=== PATIENT | female | born 1970 | race American Indian/Alaskan Native ===

== ENCOUNTER 2023-04-15 14:28 | Emergency (ER) | payer MEDICAID ==
[2023-04-15] MEDS ORDERED: Diphtheria,Pertussis(Acell),Tetanus Vaccine 0.5 ML Syringe IM ONE (14:57)
[2023-04-15] MEDS ORDERED: Bacitracin Oint 15 GM Tube TOP ONE (15:24)
== END 2023-04-15 15:42 | disposition home or self-care (01) ==
LOC: JD.ED 14:28
DX: S90.811A Abrasion, right foot, initial encounter (principal); Z88.5 Allergy status to narcotic agent; Z23 Encounter for immunization; W19.XXXA Unspecified fall, initial encounter
CPT/HCPCS: 73630-26-RT; 73630-RT; 90471; 90715; 99283-25

== ENCOUNTER 2023-06-28 19:13 | Emergency (ER) | payer MEDICAID ==
[2023-06-28] MEDS ORDERED: Gentamicin 0.3% Ophth Soln 5 ML Bottle EYELF SCH (21:00)
== END 2023-06-28 21:23 | disposition home or self-care (01) ==
LOC: JD.ED 19:13
DX: H10.9 Unspecified conjunctivitis (principal); E11.9 Type 2 diabetes mellitus without complications; E66.9 Obesity, unspecified; Z68.35 Body mass index [BMI] 35.0-35.9, adult; Z88.5 Allergy status to narcotic agent; Z91.040 Latex allergy status; Z79.899 Other long term (current) drug therapy; Z79.4 Long term (current) use of insulin
CPT/HCPCS: 99282; A9270; 99283

== ENCOUNTER 2023-08-12 12:44 | Emergency (ER) | payer MEDICAID | END 2023-08-12 14:20 | disposition home or self-care (01) | LOC: JD.ED 12:44 | DX: S50.02XA Contusion of left elbow, initial encounter (principal); E11.9 Type 2 diabetes mellitus without complications; E66.9 Obesity, unspecified; Z98.890 Other specified postprocedural states; Z88.5 Allergy status to narcotic agent; Z91.040 Latex allergy status; Z79.899 Other long term (current) drug therapy; Z79.4 Long term (current) use of insulin; W01.198A Fall on same level from slipping, tripping and stumbling with subsequent striking against other object, initial encounter; Y93.E1 Activity, personal bathing and showering | CPT/HCPCS: 73080-26-LT; 73080-LT; 73090-26-LT; 73090-LT; 99283 ==

== ENCOUNTER 2025-05-22 19:20 | Emergency (ER) | payer SELFPAY ==
[2025-05-22] MEDS ORDERED: Sodium Chloride 0.9% 10 ML Syringe FLUSH PRN (20:04)
[2025-05-22 20:07] LABS: BASOPHILS ABSOLUTE AUTO 0.1 K/mm3 (0.0-0.2); BASOPHILS PERCENT AUTO 0.7 % (0.0-1.0); EOSINOPHILS ABSOLUTE AUTO 0.2 K/mm3 (0.0-0.4); EOSINOPHILS PERCENT AUTO 2.9 % (0.0-6.0); IMMATURE GRAN ABSOLUTE AUTO 0.02 K/mm3 (0.00-0.05); IMMATURE GRAN PERCENT AUTO 0.3 % (0.0-0.4); LYMPHOCYTES ABSOLUTE AUTO 2.5 K/mm3 (1.0-4.8); LYMPHOCYTES PERCENT AUTO 36.8 % (24.0-44.0); MEAN PLATELET VOLUME 10.9 fl (9.4-12.3); MONOCYTES ABSOLUTE AUTO 0.5 K/mm3 (0.0-0.8); MONOCYTES PERCENT AUTO 7.4 % (0.0-8.0); NEUTROPHILS ABSOLUTE AUTO 3.5 K/mm3 (1.8-7.7); NEUTROPHILS PERCENT AUTO 51.9 % (41.0-71.0); NRBC ABSOLUTE 0.00 (0.00-0.02); NRBC PERCENT 0.0 % (0.0-0.2); PLATELET COUNT,PLT 212 K/mm3 (150-400); RED BLOOD CELL COUNT 5.59 M/mm3 (4.10-5.30); WHITE BLOOD CELL COUNT,WBC 6.80 K/mm3 (3.9-11.3)
[2025-05-22 20:22] LABS: A/G RATIO 0.7 (1-2); ALANINE AMINOTRANSFERASE,ALT 31.0 U/L (14-59); ASPARTATE AMNIOTRANSFERASE,AST 19.0 U/L (15-37); BILIRUBIN TOTAL 0.5 mg/dL (0.2-1.0); BLOOD UREA NITROGEN,BUN 10.0 mg/dL (7-18); CARBON DIOXIDE,CO2 24.0 mEq/L (21-32); CHLORIDE,CL 105.0 mEq/L (98-107); CREATININE 0.9 mg/dL (0.55-1.02); EST CRCL DRUG DOSING (CG) 67.87 mL/min; ESTIMATED GFR 75.0 mL/min (>60); POTASSIUM,K 4.3 mEq/L (3.5-5.1); PROTEIN TOTAL,TP 8.1 g/dl (6.4-8.2); SODIUM,NA 140.0 mEq/L (136-145)
[2025-05-22] MEDS: Ondansetron 4 MG/2 ML SDV IVPUSH ONE (20:24)
[2025-05-22 20:32] LABS: GLUCOSE RANDOM 468.0 mg/dL (70-99)
[2025-05-22] MEDS: Sodium Chloride 0.9% 10 ML Syringe FLUSH PRN (20:46)
[2025-05-22] MEDS: Iopamidol 612 MG/ML 30 ML SDV IV ONE (20:46)
[2025-05-22] MEDS: Iopamidol 612 MG/ML 100 ML Bottle IVPUSH ONE (20:46)
[2025-05-22 22:15] LABS: APPEARANCE,URINE CLEAR (Clear); GLUCOSE,URINE 2+ (Negative); OCCULT BLOOD,URINE TRACE-INTACT (Negative)
[2025-05-22 22:24] LABS: SQUAMOUS EPITHELIAL CELLS,UR 0-5 /hpf (0-5)
== END 2025-05-22 22:53 | disposition home or self-care (01) ==
LOC: JD.ED 19:20
DX: K52.9 Noninfective gastroenteritis and colitis, unspecified (principal); E11.65 Type 2 diabetes mellitus with hyperglycemia; Z88.5 Allergy status to narcotic agent; Z91.040 Latex allergy status; Z79.4 Long term (current) use of insulin; Z79.899 Other long term (current) drug therapy; Z90.49 Acquired absence of other specified parts of digestive tract
CPT/HCPCS: 36415; 74177; 80053; 81001; 83690; 85025; 96361; 96374; 96375; 99284; J1308; J2405; J7030; Q9967; J1171

== ENCOUNTER 2025-05-27 16:51 | Emergency (ER) | payer MEDICAID ==
[2025-05-27] MEDS: Ondansetron 4 MG/2 ML SDV IVPUSH ONE ×2 (17:50→23:21)
[2025-05-27 17:51] LABS: BASOPHILS ABSOLUTE AUTO 0.1 K/mm3 (0.0-0.2); BASOPHILS PERCENT AUTO 0.8 % (0.0-1.0); EOSINOPHILS ABSOLUTE AUTO 0.2 K/mm3 (0.0-0.4); EOSINOPHILS PERCENT AUTO 2.0 % (0.0-6.0); IMMATURE GRAN ABSOLUTE AUTO 0.02 K/mm3 (0.00-0.05); IMMATURE GRAN PERCENT AUTO 0.3 % (0.0-0.4); LYMPHOCYTES ABSOLUTE AUTO 2.4 K/mm3 (1.0-4.8); LYMPHOCYTES PERCENT AUTO 31.9 % (24.0-44.0); MEAN PLATELET VOLUME 11.4 fl (9.4-12.3); MONOCYTES ABSOLUTE AUTO 0.5 K/mm3 (0.0-0.8); MONOCYTES PERCENT AUTO 6.8 % (0.0-8.0); NEUTROPHILS ABSOLUTE AUTO 4.3 K/mm3 (1.8-7.7); NEUTROPHILS PERCENT AUTO 58.2 % (41.0-71.0); NRBC ABSOLUTE 0.00 (0.00-0.02); NRBC PERCENT 0.0 % (0.0-0.2); PLATELET COUNT,PLT 228 K/mm3 (150-400); RED BLOOD CELL COUNT 5.80 M/mm3 (4.10-5.30); WHITE BLOOD CELL COUNT,WBC 7.40 K/mm3 (3.9-11.3)
[2025-05-27 18:07] LABS: A/G RATIO 0.7 (1-2); ALANINE AMINOTRANSFERASE,ALT 31.0 U/L (14-59); ASPARTATE AMNIOTRANSFERASE,AST 23.0 U/L (15-37); BILIRUBIN TOTAL 0.4 mg/dL (0.2-1.0); BLOOD UREA NITROGEN,BUN 13.0 mg/dL (7-18); CARBON DIOXIDE,CO2 23.0 mEq/L (21-32); CHLORIDE,CL 105.0 mEq/L (98-107); CREATININE 1.1 mg/dL (0.55-1.02); EST CRCL DRUG DOSING (CG) 55.53 mL/min; ESTIMATED GFR 59.0 mL/min (>60); POTASSIUM,K 4.1 mEq/L (3.5-5.1); PROTEIN TOTAL,TP 8.2 g/dl (6.4-8.2); SODIUM,NA 140.0 mEq/L (136-145)
[2025-05-27 18:11] LABS: GLUCOSE RANDOM 592.0 mg/dL (70-99)
[2025-05-27 19:10] LABS: APPEARANCE,URINE CLEAR (Clear); GLUCOSE,URINE 2+ (Negative); OCCULT BLOOD,URINE TRACE-LYSED (Negative)
[2025-05-27] MEDS: Insulin Regular, Human 100 Units/ML 10 ML Vial SUBCUT ONE (19:12)
[2025-05-27] MEDS ORDERED: Iopamidol 755 Mg/ML 100 ML Bottle IVPUSH ONE (19:14)
[2025-05-27] MEDS: Sodium Chloride 0.9% 10 ML Syringe FLUSH PRN (19:15)
[2025-05-27] MEDS: Iopamidol 612 MG/ML 100 ML Bottle IVPUSH ONE (19:15)
[2025-05-27 19:20] LABS: BASE EXCESS ARTERIAL -0.2 (-2-2.0); BICARBONATE,ARTERIAL 24.0 meq/L (22.0-26.0); O2 SATURATION ARTERIAL 95.4 % (96.0-97.0); PCO2 ARTERIAL 37.0 mmHg (35.0-45.0); PO2 ARTERIAL 69.0 mmHg (80.0-100.0)
[2025-05-27] MEDS: Ketorolac 15 MG/ML SDV IVPUSH ONE (19:24)
[2025-05-27 19:35] LABS: EPITHELIAL CELLS,URINE 0-5 /hpf (0-5)
[2025-05-27] MEDS: Insulin Regular, Human 100 Units/ML 10 ML Vial IV ONE (21:29)
== END 2025-05-27 23:19 | disposition home or self-care (01) ==
LOC: JD.ED 16:51
DX: R10.9 Unspecified abdominal pain (principal); E11.65 Type 2 diabetes mellitus with hyperglycemia; R11.2 Nausea with vomiting, unspecified; R82.90 Unspecified abnormal findings in urine; E66.9 Obesity, unspecified; Z88.8 Allergy status to other drugs, medicaments and biological substances; Z88.5 Allergy status to narcotic agent; Z79.4 Long term (current) use of insulin; Z91.040 Latex allergy status; Z90.49 Acquired absence of other specified parts of digestive tract; Z90.710 Acquired absence of both cervix and uterus; Z68.39 Body mass index [BMI] 39.0-39.9, adult
CPT/HCPCS: 36415; 36600; 74177; 80053; 81001; 82010; 82803; 82947; 83690; 83930; 84484; 85025; 93005; 96361; 96374; 96375; 96376; 99284; A9270; J1171; J1815; J1885; J2405; J7030; Q9967; 93010

== ENCOUNTER 2025-05-29 11:15 | Inpatient (IN) | payer SELFPAY ==
[2025-05-29] MEDS: Ondansetron 4 MG/2 ML SDV IVPUSH ONE (11:31)
[2025-05-29 11:46] LABS: BASOPHILS ABSOLUTE AUTO 0.1 K/mm3 (0.0-0.2); BASOPHILS PERCENT AUTO 0.8 % (0.0-1.0); EOSINOPHILS ABSOLUTE AUTO 0.1 K/mm3 (0.0-0.4); EOSINOPHILS PERCENT AUTO 2.0 % (0.0-6.0); IMMATURE GRAN ABSOLUTE AUTO 0.01 K/mm3 (0.00-0.05); IMMATURE GRAN PERCENT AUTO 0.2 % (0.0-0.4); LYMPHOCYTES ABSOLUTE AUTO 1.6 K/mm3 (1.0-4.8); LYMPHOCYTES PERCENT AUTO 25.2 % (24.0-44.0); MEAN PLATELET VOLUME 10.9 fl (9.4-12.3); MONOCYTES ABSOLUTE AUTO 0.4 K/mm3 (0.0-0.8); MONOCYTES PERCENT AUTO 6.2 % (0.0-8.0); NEUTROPHILS ABSOLUTE AUTO 4.2 K/mm3 (1.8-7.7); NEUTROPHILS PERCENT AUTO 65.6 % (41.0-71.0); NRBC ABSOLUTE 0.00 (0.00-0.02); NRBC PERCENT 0.0 % (0.0-0.2); PLATELET COUNT,PLT 202 K/mm3 (150-400); RED BLOOD CELL COUNT 5.34 M/mm3 (4.10-5.30); WHITE BLOOD CELL COUNT,WBC 6.42 K/mm3 (3.9-11.3)
[2025-05-29 12:08] LABS: A/G RATIO 0.8 (1-2); ALANINE AMINOTRANSFERASE,ALT 28.0 U/L (14-59); ASPARTATE AMNIOTRANSFERASE,AST 19.0 U/L (15-37); BILIRUBIN TOTAL 0.7 mg/dL (0.2-1.0); BLOOD UREA NITROGEN,BUN 10.0 mg/dL (7-18); CARBON DIOXIDE,CO2 23.0 mEq/L (21-32); CHLORIDE,CL 104.0 mEq/L (98-107); CREATININE 0.9 mg/dL (0.55-1.02); EST CRCL DRUG DOSING (CG) 67.87 mL/min; ESTIMATED GFR 75.0 mL/min (>60); POTASSIUM,K 4.1 mEq/L (3.5-5.1); PROTEIN TOTAL,TP 7.7 g/dl (6.4-8.2); SODIUM,NA 141.0 mEq/L (136-145)
[2025-05-29 12:09] LABS: GLUCOSE RANDOM 418.0 mg/dL (70-99)
[2025-05-29 12:10] LABS: ETHANOL BLOOD MEDICAL 0.0 gm% (0.00)
[2025-05-29 12:11] LABS: LACTIC ACID 1.7 mmol/L (0.4-2.0)
[2025-05-29] MEDS: Lactated Ringers 1,000 ML IV STA (13:01)
[2025-05-29] MEDS: Insulin Lispro 100 Unit/ML 3 ML KwikPen SUBCUT ONE (13:07)
[2025-05-29 14:24] LABS: APPEARANCE,URINE CLEAR (Clear); GLUCOSE,URINE 2+ (Negative); OCCULT BLOOD,URINE NEGATIVE (Negative)
[2025-05-29 14:33] LABS: BUPRENORPHINE SCREEN,URINE NEGATIVE (CUTOFF=10); METHADONE SCREEN, URINE NEGATIVE (CUTOFF=200); METHAMPHETAMINES SCREEN, URINE NEGATIVE (CUTOFF=500); OXYCODONE SCREEN,URINE NEGATIVE (CUT0FF=100); THC SCREEN,URINE 20 NG/ML NEGATIVE (CUTOFF=50)
[2025-05-29 14:37] LABS: EPITHELIAL CELLS,URINE 0-5 /hpf (0-5)
[2025-05-29 14:41] LABS: AMPHETAMINES SCREEN, URINE NEGATIVE (CUTOFF=500)
[2025-05-29 15:31] LABS: PCO2 VENOUS 37.0 mmHg (41-51); PH,VENOUS 7.35 (7.30-7.40); PO2 VENOUS 31.0 mmHG (40-80)
[2025-05-29 15:32] LABS: BASE EXCESS VENOUS -4.6 (-4.0-2.0); BICARBONATE,VENOUS 20.4 meq/L (22-26); O2 SATURATION VENOUS 51.0
[2025-05-29] MEDS ORDERED: 50% Dextrose in Water 50 ML Syringe IVPUSH PRN (15:51)
[2025-05-29] MEDS: Lactated Ringers 1,000 ML IV SCH (16:04)
[2025-05-29] MEDS: Insulin Lispro 100 Unit/ML 3 ML KwikPen SUBCUT SCH (17:06)
[2025-05-29] MEDS: Ketorolac 30 MG/ML SDV IVPUSH PRN (21:32)
[2025-05-30 05:31] LABS: BASOPHILS ABSOLUTE AUTO 0.1 K/mm3 (0.0-0.2); BASOPHILS PERCENT AUTO 1.3 % (0.0-1.0); EOSINOPHILS ABSOLUTE AUTO 0.2 K/mm3 (0.0-0.4); EOSINOPHILS PERCENT AUTO 3.3 % (0.0-6.0); IMMATURE GRAN ABSOLUTE AUTO 0.01 K/mm3 (0.00-0.05); IMMATURE GRAN PERCENT AUTO 0.2 % (0.0-0.4); LYMPHOCYTES ABSOLUTE AUTO 2.0 K/mm3 (1.0-4.8); LYMPHOCYTES PERCENT AUTO 42.8 % (24.0-44.0); MEAN PLATELET VOLUME 11.0 fl (9.4-12.3); MONOCYTES ABSOLUTE AUTO 0.4 K/mm3 (0.0-0.8); MONOCYTES PERCENT AUTO 8.8 % (0.0-8.0); NEUTROPHILS ABSOLUTE AUTO 2.0 K/mm3 (1.8-7.7); NEUTROPHILS PERCENT AUTO 43.6 % (41.0-71.0); NRBC ABSOLUTE 0.00 (0.00-0.02); NRBC PERCENT 0.0 % (0.0-0.2); PLATELET COUNT,PLT 156 K/mm3 (150-400); RED BLOOD CELL COUNT 4.71 M/mm3 (4.10-5.30); WHITE BLOOD CELL COUNT,WBC 4.56 K/mm3 (3.9-11.3)
[2025-05-30] MEDS: Ondansetron 4 MG/2 ML SDV IVPUSH PRN (05:59)
[2025-05-30 06:01] LABS: A/G RATIO 0.7 (1-2); ALANINE AMINOTRANSFERASE,ALT 26.0 U/L (14-59); ASPARTATE AMNIOTRANSFERASE,AST 19.0 U/L (15-37); BILIRUBIN TOTAL 0.5 mg/dL (0.2-1.0); BLOOD UREA NITROGEN,BUN 9.0 mg/dL (7-18); CARBON DIOXIDE,CO2 24.0 mEq/L (21-32); CHLORIDE,CL 105.0 mEq/L (98-107); CREATININE 0.8 mg/dL (0.55-1.02); EST CRCL DRUG DOSING (CG) 76.36 mL/min; ESTIMATED GFR 86.0 mL/min (>60); POTASSIUM,K 3.7 mEq/L (3.5-5.1); PROTEIN TOTAL,TP 6.3 g/dl (6.4-8.2); SODIUM,NA 139.0 mEq/L (136-145)
[2025-05-30 06:14] LABS: GLUCOSE RANDOM 429.0 mg/dL (70-99)
[2025-05-30] MEDS: Insulin Lispro 100 Unit/ML 3 ML KwikPen SUBCUT ONE (06:42)
[2025-05-30] MEDS: Insulin Glargine,Human Rec. Analog 100 Units/ML 3 ML Pen SUBCUT SCH ×2 (08:28→20:49)
[2025-05-30] MEDS ORDERED: Insulin Glargine,Human Rec. Analog 100 Units/ML 3 ML Pen SUBCUT SCH (09:00)
[2025-05-30 10:03] LABS: CHOLESTEROL HDL 27.0 mg/dL (40-59); CHOLESTEROL LDL DIRECT 80.0 mg/dL (<100); CHOLESTEROL TOTAL 127.0 mg/dL (<200); TSH 4.945 uIU/mL (0.358-3.74)
[2025-05-30 10:42] LABS: T4 FREE 1.15 ng/dL (0.76-1.46)
[2025-05-31] MEDS: Insulin Glargine,Human Rec. Analog 100 Units/ML 3 ML Pen SUBCUT SCH (08:23)
[2025-05-31] MEDS: Magnesium Citrate Solution 296 ML Bottle PO ONE (09:20)
== END 2025-05-31 13:39 | disposition home or self-care (01) | DRG 392 ==
LOC: JD.ED 11:15 → JD.MS 13:13
PROVIDERS: ADMIT Family Medicine; ATTEND Family Medicine
DX: K29.00 Acute gastritis without bleeding (principal); E87.29 Other acidosis; Z68.41 Body mass index [BMI] 40.0-44.9, adult; K31.84 Gastroparesis; E11.65 Type 2 diabetes mellitus with hyperglycemia; H54.7 Unspecified visual loss; N20.0 Calculus of kidney; G43.909 Migraine, unspecified, not intractable, without status migrainosus; E66.9 Obesity, unspecified; E83.42 Hypomagnesemia; E86.0 Dehydration; D64.9 Anemia, unspecified; Z90.49 Acquired absence of other specified parts of digestive tract; Z98.890 Other specified postprocedural states; Z88.8 Allergy status to other drugs, medicaments and biological substances; Z98.891 History of uterine scar from previous surgery; Z91.040 Latex allergy status; Z79.4 Long term (current) use of insulin; Z90.710 Acquired absence of both cervix and uterus; Z87.891 Personal history of nicotine dependence
CPT/HCPCS: 36415; 74018; 74018-26; 76705; 76705-26; 80053; 80061; 80306; 80307; 81001; 82010; 82803; 82947; 83036; 83605; 83690; 83735; 83930; 84100; 84439; 84443; 84703; 85025; 86140; 87338; 96361; 96374; 96375; 99285; 99285-25; A9270-GY; J1650; J1815-GY; J1885; J2405; J2470; J2765; J3475; J7030; J7120

== ENCOUNTER 2025-06-08 13:27 | Inpatient (IN) | payer SELFPAY ==
[2025-06-08 14:05] LABS: BASOPHILS ABSOLUTE AUTO 0.1 K/mm3 (0.0-0.2); BASOPHILS PERCENT AUTO 0.8 % (0.0-1.0); EOSINOPHILS ABSOLUTE AUTO 0.0 K/mm3 (0.0-0.4); EOSINOPHILS PERCENT AUTO 0.2 % (0.0-6.0); IMMATURE GRAN ABSOLUTE AUTO 0.04 K/mm3 (0.00-0.05); IMMATURE GRAN PERCENT AUTO 0.4 % (0.0-0.4); LYMPHOCYTES ABSOLUTE AUTO 1.8 K/mm3 (1.0-4.8); LYMPHOCYTES PERCENT AUTO 19.6 % (24.0-44.0); MEAN PLATELET VOLUME 11.3 fl (9.4-12.3); MONOCYTES ABSOLUTE AUTO 0.4 K/mm3 (0.0-0.8); MONOCYTES PERCENT AUTO 4.6 % (0.0-8.0); NEUTROPHILS ABSOLUTE AUTO 6.9 K/mm3 (1.8-7.7); NEUTROPHILS PERCENT AUTO 74.4 % (41.0-71.0); NRBC ABSOLUTE 0.00 (0.00-0.02); NRBC PERCENT 0.0 % (0.0-0.2); PLATELET COUNT,PLT 246 K/mm3 (150-400); RED BLOOD CELL COUNT 6.06 M/mm3 (4.10-5.30); WHITE BLOOD CELL COUNT,WBC 9.23 K/mm3 (3.9-11.3)
[2025-06-08] MEDS: Ondansetron 4 MG/2 ML SDV IVPUSH ONE ×2 (14:07→16:39)
[2025-06-08 14:34] LABS: A/G RATIO 0.8 (1-2); ALANINE AMINOTRANSFERASE,ALT 33.0 U/L (14-59); ASPARTATE AMNIOTRANSFERASE,AST 16.0 U/L (15-37); BILIRUBIN TOTAL 0.8 mg/dL (0.2-1.0); BLOOD UREA NITROGEN,BUN 20.0 mg/dL (7-18); CARBON DIOXIDE,CO2 18.0 mEq/L (21-32); CHLORIDE,CL 99.0 mEq/L (98-107); CREATININE 1.3 mg/dL (0.55-1.02); EST CRCL DRUG DOSING (CG) 46.99 mL/min; ESTIMATED GFR 48.0 mL/min (>60); POTASSIUM,K 4.7 mEq/L (3.5-5.1); PROTEIN TOTAL,TP 9.0 g/dl (6.4-8.2); SODIUM,NA 136.0 mEq/L (136-145)
[2025-06-08 15:09] LABS: ETHANOL BLOOD MEDICAL 0.0 gm% (0.00); GLUCOSE RANDOM 682.0 mg/dL (70-99)
[2025-06-08 15:10] LABS: APPEARANCE,URINE CLEAR (Clear); GLUCOSE,URINE 2+ (Negative); OCCULT BLOOD,URINE TRACE-INTACT (Negative)
[2025-06-08 15:23] LABS: EPITHELIAL CELLS,URINE 0-5 /hpf (0-5)
[2025-06-08 16:08] LABS: PH,VENOUS 7.28 (7.30-7.40)
[2025-06-08 16:09] LABS: BASE EXCESS VENOUS -6.4 (-4.0-2.0); BICARBONATE,VENOUS 20.2 meq/L (22-26); O2 SATURATION VENOUS 38.2; PCO2 VENOUS 43.0 mmHg (41-51); PO2 VENOUS 35.0 mmHG (40-80)
[2025-06-08] MEDS: Sodium Chloride 0.9% 10 ML Syringe FLUSH PRN (16:39)
[2025-06-08] MEDS ORDERED: 50% Dextrose in Water 50 ML Syringe IVPUSH PRN (17:18)
[2025-06-08 18:36] LABS: PHOSPHORUS 3.8 mg/dL (2.6-4.7)
[2025-06-08 19:48] LABS: BLOOD UREA NITROGEN,BUN 22.0 mg/dL (7-18); CARBON DIOXIDE,CO2 26.0 mEq/L (21-32); CHLORIDE,CL 106.0 mEq/L (98-107); CREATININE 1.3 mg/dL (0.55-1.02); EST CRCL DRUG DOSING (CG) 46.99 mL/min; ESTIMATED GFR 48.0 mL/min (>60); GLUCOSE RANDOM 317.0 mg/dL (70-99); POTASSIUM,K 3.9 mEq/L (3.5-5.1); SODIUM,NA 144.0 mEq/L (136-145)
[2025-06-08] MEDS: LORazepam 2 MG/ML SDV IVPUSH PRN (21:00)
[2025-06-08] MEDS: Midazolam 1 MG/ML 2 ML SDV IVPUSH ONE (22:55)
[2025-06-08] MEDS: fentaNYL 100 MCG/2 ML SDV IVPUSH ONE (22:55)
[2025-06-08 23:13] LABS: BLOOD UREA NITROGEN,BUN 22.0 mg/dL (7-18); CARBON DIOXIDE,CO2 22.0 mEq/L (21-32); CHLORIDE,CL 110.0 mEq/L (98-107); CREATININE 1.2 mg/dL (0.55-1.02); EST CRCL DRUG DOSING (CG) 50.9 mL/min; ESTIMATED GFR 53.0 mL/min (>60); GLUCOSE RANDOM 288.0 mg/dL (70-99); POTASSIUM,K 4.1 mEq/L (3.5-5.1); SODIUM,NA 143.0 mEq/L (136-145)
[2025-06-08 23:16] LABS: PHOSPHORUS 2.9 mg/dL (2.6-4.7)
[2025-06-09 02:33] LABS: PHOSPHORUS 2.7 mg/dL (2.6-4.7)
[2025-06-09 05:00] LABS: BLOOD UREA NITROGEN,BUN 20.0 mg/dL (7-18); CARBON DIOXIDE,CO2 27.0 mEq/L (21-32); CHLORIDE,CL 113.0 mEq/L (98-107); CREATININE 1.0 mg/dL (0.55-1.02); EST CRCL DRUG DOSING (CG) 61.09 mL/min; ESTIMATED GFR 66.0 mL/min (>60); GLUCOSE RANDOM 271.0 mg/dL (70-99); POTASSIUM,K 3.7 mEq/L (3.5-5.1); SODIUM,NA 147.0 mEq/L (136-145)
[2025-06-09] MEDS: Insulin Glargine,Human Rec. Analog 100 Units/ML 3 ML Pen SUBCUT ONE (08:18)
[2025-06-09 08:21] LABS: BLOOD UREA NITROGEN,BUN 19.0 mg/dL (7-18); CARBON DIOXIDE,CO2 25.0 mEq/L (21-32); CHLORIDE,CL 113.0 mEq/L (98-107); CREATININE 0.8 mg/dL (0.55-1.02); EST CRCL DRUG DOSING (CG) 76.36 mL/min; ESTIMATED GFR 86.0 mL/min (>60); GLUCOSE RANDOM 241.0 mg/dL (70-99); POTASSIUM,K 3.5 mEq/L (3.5-5.1); SODIUM,NA 147.0 mEq/L (136-145)
[2025-06-09 09:25] LABS: PHOSPHORUS 2.6 mg/dL (2.6-4.7)
[2025-06-09] MEDS: Insulin Lispro 100 Unit/ML 3 ML KwikPen SUBCUT SCH (11:23)
[2025-06-09 12:21] LABS: BLOOD UREA NITROGEN,BUN 18.0 mg/dL (7-18); CARBON DIOXIDE,CO2 22.0 mEq/L (21-32); CHLORIDE,CL 107.0 mEq/L (98-107); CREATININE 0.8 mg/dL (0.55-1.02); EST CRCL DRUG DOSING (CG) 76.36 mL/min; ESTIMATED GFR 86.0 mL/min (>60); GLUCOSE RANDOM 344.0 mg/dL (70-99); POTASSIUM,K 3.8 mEq/L (3.5-5.1); SODIUM,NA 139.0 mEq/L (136-145)
[2025-06-09] MEDS: Insulin Glargine,Human Rec. Analog 100 Units/ML 3 ML Pen SUBCUT SCH (20:53)
[2025-06-10 06:17] LABS: BASOPHILS ABSOLUTE AUTO 0.1 K/mm3 (0.0-0.2); BASOPHILS PERCENT AUTO 0.9 % (0.0-1.0); EOSINOPHILS ABSOLUTE AUTO 0.3 K/mm3 (0.0-0.4); EOSINOPHILS PERCENT AUTO 3.3 % (0.0-6.0); IMMATURE GRAN ABSOLUTE AUTO 0.02 K/mm3 (0.00-0.05); IMMATURE GRAN PERCENT AUTO 0.3 % (0.0-0.4); LYMPHOCYTES ABSOLUTE AUTO 2.8 K/mm3 (1.0-4.8); LYMPHOCYTES PERCENT AUTO 36.1 % (24.0-44.0); MEAN PLATELET VOLUME 10.6 fl (9.4-12.3); MONOCYTES ABSOLUTE AUTO 0.5 K/mm3 (0.0-0.8); MONOCYTES PERCENT AUTO 5.9 % (0.0-8.0); NEUTROPHILS ABSOLUTE AUTO 4.2 K/mm3 (1.8-7.7); NEUTROPHILS PERCENT AUTO 53.5 % (41.0-71.0); NRBC ABSOLUTE 0.00 (0.00-0.02); NRBC PERCENT 0.0 % (0.0-0.2); PLATELET COUNT,PLT 184 K/mm3 (150-400); RED BLOOD CELL COUNT 4.75 M/mm3 (4.10-5.30); WHITE BLOOD CELL COUNT,WBC 7.85 K/mm3 (3.9-11.3)
[2025-06-10 06:23] LABS: A/G RATIO 0.7 (1-2); ALANINE AMINOTRANSFERASE,ALT 29.0 U/L (14-59); ASPARTATE AMNIOTRANSFERASE,AST 18.0 U/L (15-37); BILIRUBIN TOTAL 0.4 mg/dL (0.2-1.0); BLOOD UREA NITROGEN,BUN 11.0 mg/dL (7-18); CARBON DIOXIDE,CO2 24.0 mEq/L (21-32); CHLORIDE,CL 109.0 mEq/L (98-107); CREATININE 0.6 mg/dL (0.55-1.02); EST CRCL DRUG DOSING (CG) 101.81 mL/min; ESTIMATED GFR 105.0 mL/min (>60); GLUCOSE RANDOM 125.0 mg/dL (70-99); POTASSIUM,K 3.5 mEq/L (3.5-5.1); PROTEIN TOTAL,TP 6.8 g/dl (6.4-8.2); SODIUM,NA 142.0 mEq/L (136-145)
== END 2025-06-11 10:57 | disposition home or self-care (01) | DRG 638 ==
LOC: JD.ED 13:27 → JD.ICU 16:16 → JD.MS 06-09 17:39
PROVIDERS: ADMIT Family Medicine; ATTEND Family Medicine
PROC: 02HV33Z Insertion of Infusion Device into Superior Vena Cava, Percutaneous Approach (ICD-10-PCS; principal; 2025-06-08)
DX: E11.10 Type 2 diabetes mellitus with ketoacidosis without coma (principal); N17.9 Acute kidney failure, unspecified; Z68.41 Body mass index [BMI] 40.0-44.9, adult; H54.7 Unspecified visual loss; J45.909 Unspecified asthma, uncomplicated; G43.909 Migraine, unspecified, not intractable, without status migrainosus; E66.01 Morbid (severe) obesity due to excess calories; N20.0 Calculus of kidney; J01.90 Acute sinusitis, unspecified; D64.9 Anemia, unspecified; I25.2 Old myocardial infarction; Z90.49 Acquired absence of other specified parts of digestive tract; Z98.891 History of uterine scar from previous surgery; Z90.710 Acquired absence of both cervix and uterus; Z88.8 Allergy status to other drugs, medicaments and biological substances; Z79.84 Long term (current) use of oral hypoglycemic drugs; Z79.4 Long term (current) use of insulin; Z79.899 Other long term (current) drug therapy; Z98.890 Other specified postprocedural states
CPT/HCPCS: 36415; 36569; 71045; 71045-26; 80048; 80053; 80307; 81001; 82010; 82803; 82947; 83690; 83735; 84100; 84132; 85025; 86140; 93005; 93010; 96361; 96374; 99285; 99285-25; A9270-GY; J0696; J1308; J1650; J1815-GY; J2060; J2405; J2765; J7030; S5010

== ENCOUNTER 2025-09-04 18:18 | Emergency (ER) | payer MEDICAID, OTHER ==
[2025-09-04 18:49] LABS: BASOPHILS ABSOLUTE AUTO 0.1 K/mm3 (0.0-0.2); BASOPHILS PERCENT AUTO 1.0 % (0.0-1.0); EOSINOPHILS ABSOLUTE AUTO 0.4 K/mm3 (0.0-0.4); EOSINOPHILS PERCENT AUTO 5.4 % (0.0-6.0); IMMATURE GRAN ABSOLUTE AUTO 0.01 K/mm3 (0.00-0.05); IMMATURE GRAN PERCENT AUTO 0.1 % (0.0-0.4); LYMPHOCYTES ABSOLUTE AUTO 2.5 K/mm3 (1.0-4.8); LYMPHOCYTES PERCENT AUTO 35.9 % (24.0-44.0); MEAN PLATELET VOLUME 9.6 fl (9.4-12.3); MONOCYTES ABSOLUTE AUTO 0.5 K/mm3 (0.0-0.8); MONOCYTES PERCENT AUTO 6.7 % (0.0-8.0); NEUTROPHILS ABSOLUTE AUTO 3.6 K/mm3 (1.8-7.7); NEUTROPHILS PERCENT AUTO 50.9 % (41.0-71.0); NRBC ABSOLUTE 0.00 (0.00-0.02); NRBC PERCENT 0.0 % (0.0-0.2); PLATELET COUNT,PLT 214 K/mm3 (150-400); RED BLOOD CELL COUNT 5.26 M/mm3 (4.10-5.30); WHITE BLOOD CELL COUNT,WBC 7.04 K/mm3 (3.9-11.3)
[2025-09-04] MEDS: Insulin Lispro 100 Unit/ML 3 ML KwikPen SUBCUT ONE (18:53)
[2025-09-04] MEDS: Sodium Chloride 0.9% 10 ML Syringe FLUSH PRN (18:54)
[2025-09-04 19:13] LABS: A/G RATIO 0.6 (1-2); ALANINE AMINOTRANSFERASE,ALT 22 U/L (14-59); ASPARTATE AMNIOTRANSFERASE,AST 15 U/L (15-37); BILIRUBIN TOTAL 0.3 mg/dL (0.2-1.0); BLOOD UREA NITROGEN,BUN 13 mg/dL (7-18); CARBON DIOXIDE,CO2 24 mEq/L (21-32); CHLORIDE,CL 103 mEq/L (98-107); CREATININE 0.9 mg/dL (0.55-1.02); ESTIMATED GFR 75 mL/min (>60); POTASSIUM,K 3.5 mEq/L (3.5-5.1); PROTEIN TOTAL,TP 7.7 g/dl (6.4-8.2); SODIUM,NA 138 mEq/L (136-145)
[2025-09-04 19:14] LABS: GLUCOSE RANDOM 411 mg/dL (70-99)
== END 2025-09-04 20:09 | disposition home or self-care (01) ==
LOC: JD.ED 18:18
DX: E11.65 Type 2 diabetes mellitus with hyperglycemia (principal); J45.909 Unspecified asthma, uncomplicated; E11.9 Type 2 diabetes mellitus without complications; E66.9 Obesity, unspecified; Z88.8 Allergy status to other drugs, medicaments and biological substances; Z91.040 Latex allergy status; Z88.5 Allergy status to narcotic agent; Z79.4 Long term (current) use of insulin; Z79.899 Other long term (current) drug therapy; Z90.49 Acquired absence of other specified parts of digestive tract; Z90.710 Acquired absence of both cervix and uterus
CPT/HCPCS: 36415; 80053; 82947; 85025; 99285; A9270; J1815; 99284